=== PATIENT | male | born 1950 | race Caucasian/White ===

== ENCOUNTER 2025-02-04 12:55 | Day surgery (SDC) | payer MEDICARE, OTHER ==
[~2025-02-04] VITALS: Ht 182.9 cm; Wt 79.9 kg
--- NOTE | ~2025-02-04 | OR ---
[facility] [address] [place], [place] [address] Draft DATE OF OPERATION: 02/04/2025 SURGEON: Kylah Fair MD PREOPERATIVE DIAGNOSIS: Recent finding of 15 cm left hepatic lobe neoplasm, undifferentiated, suspicious for hepatocellular carcinoma with peripancreatic adenopathy or neoplasm. POSTOPERATIVE DIAGNOSES: 1. Essentially normal upper endoscopy (mild antral gastritis). 2. Essentially normal colonoscopy (small polyp, sigmoid). PROCEDURES PERFORMED: 1. Esophagogastroduodenoscopy with biopsy. 2. Total colonoscopy to cecum with cold morcellation polypectomy x1. ANESTHESIA: Intravenous sedation, fentanyl 150 mcg and Versed 7 mg total. INDICATION: This 74-year-old white man is well known to me from the past, last seen in 2016 for colonoscopy which was performed in 2017. He was seen in referral from Dr. Yip for consideration of upper endoscopy and colonoscopy as well as placement of a Port-A-Cath. The patient was identified as having a neoplasm of the left lobe of the liver, about 15 cm in size, with findings on the gastrohepatic omentum with adenopathy. 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 The identity of the tumor is uncertain, but consideration of pancreatic neoplasm versus cholangiocarcinoma has been made. The patient has been seen by Dr. Jolley at [facility], a surgical oncologist, and is anticipating neoadjuvant chemotherapy and possibly resection in the future. It has been requested that upper endoscopy and colonoscopy be performed to rule out neoplasm in those areas as well as placement of Port-A-Cath promptly to initiate therapy. He is here today to undergo upper endoscopy and colonoscopy and tomorrow to undergo Port-A-Cath placement. The patient understands the risk of bleeding, infection, and perforation related to upper endoscopy and colonoscopy and wished to proceed. FINDINGS: Upper endoscopy showed normal anatomy overall. There was mild antral gastritis. There was no sign of ampullary neoplasm or tumor of the 2nd or 3rd portions of the duodenum. PATIENT NAME: IJEOMA HERNANDEZ OPERATIVE REPORT DATE OF : 50 REPORT #: [id number] PHYSICIAN: KYLAH FAIR MD PCP: MARIA ISABEL YIP MD REPORT IS CONFIDENTIAL AND NOT TO BE RELEASED WITHOUT AUTHORIZATION [facility] [address] [place], [place] [address] Draft Flap valve was normal. The esophagus was essentially normal as well. CLOtest was negative 15 minutes post procedure. Colonoscopy showed a well-prepped bowel. Complete colonoscopy with full intubation of the cecum was undertaken. There was a small polyp of the sigmoid colon which was not malignant in its appearance in any way. He tolerated both procedures well. DESCRIPTION OF PROCEDURE: The patient was brought to the endoscopy suite, given lidocaine hypopharyngeal anesthesia, and placed in lateral decubitus position. He was given intravenous sedation to the point of slurred speech and nystagmus. A bite block was placed. Olympus video upper endoscope was passed into the hypopharynx. Vocal cords were normal. Scope was advanced to the esophagus throughout its length, and it was normal. Scope was advanced to the stomach which was insufflated with air. Rugal folds were normal as was the antral motility. There was mild antral gastritis, but no sign of ulceration or erosion. Pylorus was normal. Scope was passed through into the duodenum. Full examination of the duodenum was undertaken beyond likely the 3rd portion, all of the areas normal. Biopsies were taken to assess for celiac disease. The scope was withdrawn. Biopsy was taken of the antrum for both KIMMIE and pathologic testing. Retroflexed view showed a normal-appearing flap valve. No sign of hiatal hernia. There was possibly mild proximal gastritis. Scope was straightened and withdrawn. A biopsy was then taken of the distal esophagus, though it appeared normal. There was no sign of Mccormack's epithelium or other similar problem. Midesophageal biopsies were obtained as well. Scope was withdrawn and removed. Plans were then made for colonoscopy. Additional sedation was given. Digital rectal examination was normal. Olympus video colonoscope was passed into the rectum and manipulated throughout the colon ultimately intubating the cecum itself. The cecum was normal including normal appendiceal orifice and ileocecal valve. Withdrawal of scope showed no sign of abnormality until the sigmoid where a small adenomatous-appearing polyp was noted. This was excised with cold morcellation technique completely. Further withdrawal after retroflexed viewing the rectum which was normal. Scope was removed. The patient was taken to the recovery room in good condition. CONCLUDING DIAGNOSES: Essentially normal upper endoscopy and colonoscopy. Small polyp of colon noted. Minimal antral gastritis noted. PLAN: PATIENT NAME: IJEOMA HERNANDEZ OPERATIVE REPORT DATE OF : 50 REPORT #: [id number] PHYSICIAN: KYLAH FAIR MD PCP: MARIA ISABEL YIP MD REPORT IS CONFIDENTIAL AND NOT TO BE RELEASED WITHOUT AUTHORIZATION [address] [address] Draft He will be seen tomorrow for placement of Port-A-Cath device anticipating chemotherapy under the direction of Dr. Jolley at [facility]. MD DANIAL Lee/DIPIKA /[id number] cc: Dr Jolley [facility] Maria Isabel Yip MD Copies: ~ PATIENT NAME: IJEOMA HERNANDEZ OPERATIVE REPORT DATE OF : 50 REPORT #: [id number] PHYSICIAN: KYLAH FAIR MD PCP: MARIA ISABEL YIP MD REPORT IS CONFIDENTIAL AND NOT TO BE RELEASED WITHOUT AUTHORIZATION
[~2025-02-04 12:55] MED LIST: ASPIR 8181 MG PO; BIOTIN1 MG PO; CALCIUM500 MG PO; CIPROFLOXACIN500 MG PO; COLLAGEN 15001 EACH PO; FAMCICLOVIR500 MG PO; FISH OIL + D31 EACH PO; IBLOOD GLUCOSE TEST STRIP 1 EA TEST VI PRN; LACTATED RINGER'S 1,000 ML IV SCH; LIDOCAINE HCL 1% 5 ML SDV INJ ONE; LIDOCAINE HCL 4% 50 ML BTL TOP SCH; LOVASTATIN40 MG PO; METRONIDAZOLE500 MG PO; MIDAZOLAM HCL 5 MG/5 ML VIAL IV PRN; MULTI-VITAMIN1 EACH PO; PROBIOTIC1 EAC1 PO; TENORMIN50 MG PO; VITAMIN C500 M1 PO; fentaNYL citrate 100 MCG/2 ML VIAL IV PRN
[2025-02-04 13:34] VITALS: BP 144/85
[2025-02-04 13:36] VITALS: BP 144/85
[2025-02-04] MEDS ORDERED: PENICILLIN V P500 MG PO (13:39)
[2025-02-04] MEDS ORDERED: fentaNYL citrate 100 MCG/2 ML VIAL ONE (14:55)
[2025-02-04] MEDS ORDERED: MIDAZOLAM HCL 5 MG/5 ML VIAL ONE (14:57)
--- NOTE | 2025-02-04 16:12 | NUR ---
02/04/25 1612 Mervat Valerio 1605: PT ARRIVES TO PACU EASILY AROUSABLE. REPROT RECEIVED FROM [employer].
[2025-02-04 17:12] VITALS: BP 154/97
[2025-02-05] MEDS ORDERED: ALLERGY RELIEF1 EAC1 PO (10:29)
[2025-02-05] MEDS ORDERED: MOTRIN IB200 MG PO (12:15)
[2025-02-05] MEDS ORDERED: TYLENOL EXTRA500 MG PO (12:15)
[2025-02-05] MEDS ORDERED: PERCOCET 7.5-31 EACH PO (12:15)
--- NOTE | 2025-02-07 13:27 | PATH ---
[facility] [address] [facility] [facility] [place] [address] Signed SPECIMEN(S): A DUODENAL BIOPSY SPECIMEN(S): B ANTRUM BIOPSY SPECIMEN(S): C PROXIMAL STOMACH BIOPSY SPECIMEN(S): D LOWER ESOPHAGEAL BIOPSY SPECIMEN(S): E MIDDLE ESOPHAGEAL BIOPSY SPECIMEN(S): F SIGMOID POLYP SPECIMEN SOURCE: A. DUODENAL BIOPSY B. ANTRUM BIOPSY C. PROXIMAL STOMACH BIOPSY D. LOWER ESOPHAGEAL BIOPSY E. MIDDLE ESOPHAGEAL BIOPSY F. SIGMOID POLYP CLINICAL HISTORY: Liver tumor, epigastric lymphadenopathy. Postop-polyp x 1, mild gastritis A-C) biopsy, E) biopsy, F) polyp FINAL PATHOLOGIC DIAGNOSIS: A. Duodenum, biopsies - Unremarkable duodenal mucosa, negative for active inflammation or significant villous blunting. B. Gastric antrum, biopsies - Minimal chronic antral gastritis with vascular congestion, negative for active inflammation or intestinal metaplasia. C. Proximal stomach, biopsies - Benign gastric mucosa without significant inflammation or evidence of intestinal metaplasia. D. Lower esophagus, biopsies - Benign squamous mucosa, negative for increased eosinophils or Mccormack's metaplasia. E. Middle esophagus, biopsies - Benign squamous mucosa, negative for increased eosinophils. F. Sigmoid polyp - Fragments of tubular adenoma. AMB MICROSCOPIC EXAMINATION: Histologic sections of all submitted blocks are examined by light microscopy. These findings, together with the gross examination, support the pathologic PATIENT NAME: IJEOMA HERNANDEZ PATHOLOGY DATE OF : 50 REPORT #: [id number] PHYSICIAN: ZACHARY PATHOLOGY PCP: SKYLER BARBOUR MD REPORT IS CONFIDENTIAL AND NOT TO BE RELEASED WITHOUT AUTHORIZATION [facility] [address] [place], [place] [address] Signed diagnosis. GROSS DESCRIPTION: A. The specimen, labeled and designated "Hernandez, duodenal biopsy," is received in formalin and consists of two hebert soft tissue fragments, ranging from 0.4-0.5 cm. Entirely submitted in (A1). B. The specimen, labeled and designated "Hernandez, antrum biopsy," is received in formalin and consists of one hebert soft tissue fragment, 0.5 cm. Entirely submitted in (B1). C. The specimen, labeled and designated "Hernandez, proximal stomach biopsy," is received in formalin and consists of one hebert soft tissue fragment, 0.6 cm. Entirely submitted in (C1). D. The specimen, labeled and designated "Hernandez, lower esophageal biopsy," is received in formalin and consists of two hebert soft tissue fragments, ranging from 0.2-0.3 cm. Entirely submitted in (D1). E. The specimen, labeled and designated "Hernandez, middle esophageal biopsy," is received in formalin and consists of two hebert soft tissue fragments, ranging from 0.3-0.4 cm. Entirely submitted in (E1). F. The specimen, labeled and designated "Hernandez, sigmoid polyp," is received in formalin and consists of two hebert soft tissue fragments, ranging from 0.2-0.3 cm. Entirely submitted in (F1). AB (under the direct supervision of a pathologist) The Gross Description was prepared using a voice recognition system. The report was reviewed for accuracy; however, sound-alike word errors, addition and/or deletions may occur. If there is any question about this report, please contact Client Services. ADDITIONAL NOTES: Immunohistochemical and/or in situ hybridization studies if performed in this case included appropriate positive controls that reacted as expected. This test was developed and its performance characteristics determined by [facility]. It has not been cleared or approved by the U.S. Food and Drug Administration. The FDA has determined that such clearance or approval is not necessary. This test is used for clinical purposes. It should not be regarded as investigational or for research. [facility] is certified under the Clinical Laboratory Improvement Amendments of 1988 (CLIA) as qualified to perform high complexity clinical laboratory testing. PERFORMING LABORATORY: PATIENT NAME: IJEOMA HERNANDEZ PATHOLOGY DATE OF : 50 REPORT #: [id number] PHYSICIAN: ZACHARY TAVAREZ PCP: SKYLER BARBOUR MD REPORT IS CONFIDENTIAL AND NOT TO BE RELEASED WITHOUT AUTHORIZATION [facility] [address] [place], [place] [address] Signed Technical component was performed by [facility], [address] [place] [id number] (CLIA# [id number]). Professional interpretation was performed by [facility] [address] [place] [id number] [id number] Diagnostician: Lay López MD Pathologist Electronically Signed 02/07/2025 Copies: ~ PATIENT NAME: IJEOMA HERNANDEZ PATHOLOGY DATE OF : 50 REPORT #: [id number] PHYSICIAN: ZACHARY PATHOLOGY PCP: SKYLER BARBOUR MD REPORT IS CONFIDENTIAL AND NOT TO BE RELEASED WITHOUT AUTHORIZATION
== END 2025-02-04 17:15 | disposition home or self-care (01) ==
LOC: DS 12:55
PROVIDERS: ATTEND Surgery
PROC: 0DB98ZX Excision of Duodenum, Via Natural or Artificial Opening Endoscopic, Diagnostic (ICD-10-PCS; principal; 2025-02-04 14:00)
PROC: 0DBN8ZX Excision of Sigmoid Colon, Via Natural or Artificial Opening Endoscopic, Diagnostic (ICD-10-PCS; 2025-02-04 14:00)
DX: K29.50 Unspecified chronic gastritis without bleeding (principal); D12.5 Benign neoplasm of sigmoid colon; C22.8 Malignant neoplasm of liver, primary, unspecified as to type; G47.30 Sleep apnea, unspecified; Z79.899 Other long term (current) drug therapy; Z91.040 Latex allergy status
CPT/HCPCS: 99153; G0500; J2250; J3010; J7121

== ENCOUNTER 2025-02-05 10:11 | Day surgery (SDC) | payer MEDICARE, OTHER ==
[~2025-02-05] VITALS: Ht 182.9 cm; Wt 81.0 kg
[~2025-02-05 10:11] MED LIST changes: +CEFAZOLIN SODIUM 2 GM/20 ML SYR IV SCH; +HEParin SOD (PORCINE) 5,000 UNIT/ML SDV SUB-Q SCH; -LIDOCAINE HCL 4% 50 ML BTL TOP SCH; -MIDAZOLAM HCL 5 MG/5 ML VIAL IV PRN; +PENICILLIN V P500 MG PO; -fentaNYL citrate 100 MCG/2 ML VIAL IV PRN
[2025-02-05 10:24] VITALS: BP 152/92
[2025-02-05] MEDS ORDERED: ALLERGY RELIEF1 EAC1 PO (10:29)
[2025-02-05] MEDS ORDERED: HEParin SOD (PORCINE) 5,000 UNIT/ML SDV ONE (10:33)
[2025-02-05] MEDS ORDERED: SODIUM CHLORIDE 0.9% 100 ML IV ONE (10:34)
[2025-02-05] MEDS ORDERED: fentaNYL citrate 100 MCG/2 ML VIAL ONE (11:17)
[2025-02-05] MEDS ORDERED: DEXAMETHASONE SOD PHOS 4 MG/ML VIAL ONE (11:42)
--- NOTE | 2025-02-05 12:05 | NUR ---
02/05/25 1205 Pattie Sim PATIENT OPENS HIS EYES AND FOLLOWS INSTRUCTIONS TO OPEN HIS MOUTH. ORAL AIRWAY IS REMOVED. PATIENT DENIES PAIN.
[2025-02-05] MEDS ORDERED: MOTRIN IB200 MG PO (12:15)
[2025-02-05] MEDS ORDERED: ACETAMINOPHEN 500 MG TAB PO PRN (12:15)
[2025-02-05] MEDS ORDERED: TYLENOL EXTRA500 MG PO (12:15)
[2025-02-05] MEDS ORDERED: LACTATED RINGER'S 1,000 ML IV SCH (12:15)
[2025-02-05] MEDS ORDERED: IBUPROFEN 600 MG TAB PO PRN (12:15)
[2025-02-05] MEDS ORDERED: NALOXONE HCL 0.4 MG SYR IV PRN ×2 (12:15)
[2025-02-05] MEDS ORDERED: OXYCODONE/APAP 7.5/325 TAB PO PRN (12:15)
[2025-02-05] MEDS ORDERED: fentaNYL citrate 50 MCG/ML SDV IV PRN (12:15)
[2025-02-05] MEDS ORDERED: PERCOCET 7.5-31 EACH PO (12:15)
[2025-02-05 12:20] VITALS: BP 143/91
--- NOTE | 2025-02-05 12:20 | NUR ---
PT ARRIVED BACK TO DS ON RA, AAOX3, ANSWERING QUESTIONS APPROPRIATELY, AND ABLE TO MAKE HIS NEEDS KNOWN. PTS IN ROOM UPON PTS RETURN. VS TAKEN. IV SITE ASSESSED. PT DENIES PAIN OR NAUSEA WHEN ASKED. PT PROVIDED ICE WATER AND SALTINE CRACKERS. SURGICAL SITES TO RUC AND R SIDE OF NECK VISUALIZED AND DRSG APPEARS CDI. BED IN LOW POSITION. WHEELS LOCKED. BILAT RAILS IN PLACE. CALL LIGHT WITHIN PT REACH. ALL QUESTIONS ANSWERED. LIGHTS DIMMED AT PT REQUEST.
[2025-02-05 13:20] VITALS: BP 146/74
--- NOTE | 2025-02-05 13:47 | NUR ---
1320-INTO PTS ROOM FOR ROUTINE REASSESSMENT. VS TAKEN. IV SITE ASSESSED AND SL'D. PT EATING AND DRINKING WELL. PT DENIES NAUSEA WHEN ASKED. PT REPORTS PAIN 1/10 IN IN RUC INCISION. PT REPORTS THIS PAIN TO BE TOLERABLE AND DECLINES ANY NEED FOR FURTHER PAIN MANAGEMENT INTERVENTIONS AT THIS TIME. PT FEELS HE MAY BE ABLE TO VOID. PT ASSISTED TO SITTING UP ON EOB AND WAS ABLE TO AMBULATE TO RESTROOM DOWN ARBOLEDA WITH RN SBA FOR SAFETY. 1330-PT ABLE TO VOID APPROX 400 ML OF CLR, YELLOW URINE. PT ASSISTED BACK TO ROOM. PT DRESSING FOR DISCHARGE WITH WIFES ASSISTANCE. CALL LIGHT AND PERSONAL BELONGINGS WITHIN PT REACH. 1340-INTO PTS ROOM FOR DISCHARGE EDUCATION. PT PROVIDED WITH VERBAL AND WRITTEN DC EDUCATION. PT ALSO GIVEN RX HARDCOPY AND PORT-A-CATH CARD/PAMPHLET. PT AND VERBALIZED UNDERSTANDING. ALL QUESTIONS ANSWERED. 1347- LEFT TO PULL CAR AROUND TO FRONT OF HOSPITAL. IV REMOVED. TIP APPEARS INTACT. PRESSURE DRSG APPLIED W/GAUZE AND COBAN.
--- NOTE | 2025-02-05 13:50 | NUR ---
PT DISCHARGED FROM DS VIA WC TO PASSENGER SIDE OF WIFES VEHICLE. ALL PERSONAL BELONGINGS TAKEN WITH PT.
[2025-02-05] MEDS ORDERED: SEVOFLURANE 250 ML BTL INH ONE (17:12)
--- NOTE | 2025-02-07 18:21 | EKG ---
[facility] [address] [facility] [place] [address] Signed Normal sinus rhythm Minimal voltage criteria for LVH, may be normal variant ( [address] product ) Borderline ECG When compared with ECG of 24-NOV-2016 17:16, No significant change was found Confirmed by Blake Monroe DO ([id number]) on 02/07/2025 6:21:24 PM Electronically Signed By: BLAKE MONROE DO 02/07/25 182 PATIENT NAME: DAVIDIJEOMA DALE Electrocardiogram DATE OF : 50 PHYSICIAN: BLAKE MONROE DO REPORT #: [id number] REPORT IS CONFIDENTIAL AND NOT TO BE RELEASED WITHOUT AUTHORIZATION
--- NOTE | 2025-02-09 14:10 | OR ---
[facility] [address] [place], [place] [address] Signed DATE OF OPERATION: 02/05/2025 SURGEON: Kylah Fair MD PREOPERATIVE DIAGNOSIS: Left hepatic 15 cm neoplasm, poorly differentiated malignancy. POSTOPERATIVE DIAGNOSIS: Left hepatic 15 cm neoplasm, poorly differentiated malignancy. PROCEDURES: 1. Ultrasound-guided right internal jugular venous access. 2. Right internal jugular Port-A-Cath placement (Bard port catheter). 3. Surgeon-directed fluoroscopy. ANESTHESIA: General LMA, Ganesh Seamons, [employer] RE[employer] and local 5 mL of 0.25% Marcaine with epinephrine. INDICATION: This 74-year-old white man is a patient of Dr. Maria Isabel Yip and recently diagnosed with a poorly differentiated left hepatic lobe lesion 15.2 cm in size with peripancreatic abnormalities as well. The lesion may represent cholangiocarcinoma or possibly pancreatic carcinoma. He underwent colonoscopy and upper endoscopy yesterday by me where he was found to have no lesion to account for his current findings. He is today to undergo Bard port catheter placement as he will be seeig medical oncologist Dr. Vieira in [place] soon. He has seen Dr. Jolley at [facility] already outlined treatment plan. He understands the risk of Port-A-Cath placement including, but not limited to bleeding, infection, and perforation and pneumothorax and other unforeseen complications including catheter malfunction. Understanding this, he wished to proceed. FINDINGS: Easy access to the right internal jugular vein was afforded. The catheter was placed without problem. The tip in the superior vena cava without excessive angulation deformity of the catheter in the neck area. Good function is noted and multiply tested. DESCRIPTION OF PROCEDURE: The patient was brought to the operating room, given a general LMA type anesthetic. Ancef was given preoperatively. Sequential compression device stockings were used. After satisfactory anesthesia, the chest was clipped and the neck and upper chest prepared with a chlorhexidine solution and draped sterilely. With the face slightly Electronically Signed By: KYLAH FAIR MD 02/09/25 1410 PATIENT NAME: IJEOMA HERNANDEZ OPERATIVE REPORT DATE OF : 50 REPORT #: [id number] PHYSICIAN: KYLAH FAIR MD PCP: MARIA ISABEL YIP MD REPORT IS CONFIDENTIAL AND NOT TO BE RELEASED WITHOUT AUTHORIZATION [facility] [address] [place], [place] [address] Signed turned to the left, a SonoSite ultrasound with a sterile cover was placed over the right neck, identifying easily the right internal jugular vein. Access was easily undertaken with Seldinger technique using the enclosed needle and syringe from the Bard port catheter kit. Dark nonpulsatile blood was noted. The syringe was removed and a flexible J-wire passed down the needle. The needle was removed. Fluoroscopy was used to confirm the wire in the right heart system. A 3 mL of 0.25% Marcaine with epinephrine was injected directly over the right pectoral area and a transverse incision was made. Dissection was carried through the subcutaneous tissue with electrocautery and pocket created inferiorly. A previously inspected and irrigated port device was partially secured to the pectoralis with 2-0 Vicryl. At the exit site of the wire in the neck, the site was incised with an 11 blade and dilated and subsequently passed with a dilator and peel-away sheath introducer over the wire. The wire and the dilator were removed showing vigorous retrograde nonpulsatile bleeding. A previously inspected Groshong catheter from the Bard port kit was passed down the sheath. Fluoroscopy was used to adjust the tip to be in the atriocaval junction. A small amount of contrast was used for this. Using the tunneling device, the catheter was delivered to the port down the side of the neck and over the clavicles into the port site. The catheter was trimmed to the appropriate length and secured to the port device with the collar per manufacture's instructions. The port was then secured to the pectoralis with the 2-0 Vicryl suture. Access to the port was undertaken with angled Perez needle and using fluoroscopy, the catheter was confirmed in its position and the angle of the catheter in relation to the neck was not excessive and without kinking. Easy access and withdrawal of blood and infusion of saline was noted. The port site was closed with interrupted 2-0 Vicryl and a running subcuticular 3-0 Vicryl. Lateral neck incision was similarly closed with interrupted 3-0 Vicryl. Steri-Strips were applied. The catheter was tested one more time and flushed with heparinized saline. After Steri-Strips were applied, an Acticoat dressing was applied as was an OpSite to the lateral neck. He tolerated the procedure well, anticipating a chest x-ray in recovery room soon. MD DANIAL Lee/ANABELAL /[id number] Electronically Signed By: KYLAH FAIR MD 02/09/25 1410 PATIENT NAME: IJEOMA HERNANDEZ OPERATIVE REPORT DATE OF : 50 REPORT #: [id number] PHYSICIAN: KYLAH FAIR MD PCP: MARIA ISABEL YIP MD REPORT IS CONFIDENTIAL AND NOT TO BE RELEASED WITHOUT AUTHORIZATION [facility] [address] [place] [address] [place], [place] [address] Signed cc: Lopez Vieira MD Medical Oncology Choco Wilhelm MD MD Dr Shola Reaves Copies: ~ Electronically Signed By: KYLAH FAIR MD 02/09/25 1410 PATIENT NAME: IJEOMA HERNANDEZ OPERATIVE REPORT DATE OF : 50 REPORT #: [id number] PHYSICIAN: KYLAH FAIR MD PCP: MARIA ISABEL YIP MD REPORT IS CONFIDENTIAL AND NOT TO BE RELEASED WITHOUT AUTHORIZATION
== END 2025-02-05 13:50 | disposition home or self-care (01) ==
LOC: DS 10:11
PROVIDERS: ATTEND Surgery
PROC: 0JHD3WZ Insertion of Totally Implantable Vascular Access Device into Right Upper Arm Subcutaneous Tissue and Fascia, Percutaneous Approach (ICD-10-PCS; principal; 2025-02-05 11:20)
DX: D37.6 Neoplasm of uncertain behavior of liver, gallbladder and bile ducts (principal); R59.0 Localized enlarged lymph nodes; I10 Essential (primary) hypertension; G47.30 Sleep apnea, unspecified; Z91.040 Latex allergy status
CPT/HCPCS: 00532; 71045; 77001; 88305; 93005; 93010; C1788; J0690; J1100; J1644; J2405; J2704; J3010; J7121